=== PATIENT | female | born 1955 | race Caucasian/White ===

== ENCOUNTER 2020-04-18 22:01 | Observation (INO) ==
[2020-04-18] MEDS ORDERED: ASPIRIN CHEW 324 MG PO STA (22:20)
[2020-04-18] MEDS ORDERED: FAMOTIDINE 20MG/5ML IV PUSH IV STA (22:20)
[2020-04-18] MEDS ORDERED: NITROGLYCERIN 2% OINTMENT 30GM TUBE EXT STA (22:20)
--- NOTE | 2020-04-18 22:26 | Emergency Department Note ---
Impression & Plan Precordial chest pain, SOB (shortness of breath), Acute electrocardiogram changes ED Provider Note NAME: HOLGER WINSLOW AGE: 65 SEX: F : 1955 ARRIVES VIA: Walk-In INFORMANT: [Patient] ED PROVIDER(S): [Grant Monreal MD] CHIEF COMPLAINT: Chest pain HISTORY OF PRESENT ILLNESS: The patient is a 65-year-old female who presents to the ER with a week of symptoms. The patient has had some nausea, some loose stool at times. She has had some indigestion/chest pressure that she rates as a 9/10. The pain today for the first time radiated to her back. She has had some shortness of breath with the chest discomfort and with exertion. She does think exertion sometimes makes the chest pain worse. The patient states that she has tried Mylanta and Pepto-Bismol to no relief. She has had heartburn before but nothing to this extent. There has been no sweating. She has not suffered chest trauma. There has been no fever. No cough or congestion. She has no known coronary disease history but her sister had angioplasty. The patient did have a stress test but this was many years ago. REVIEW OF SYSTEMS: See HPI for pertinent positives and negatives. A total of ten systems were reviewed and were otherwise negative. PMHx/PSHx: See Below SOCIAL HISTORY: See Below. PHYSICAL EXAM: GENERAL: Patient is in no acute distress. HEENT: No acute trauma, normocephalic atraumatic, mucous membranes moist, no nasal congestion, no scleral icterus. NECK: No stridor, no adenopathy, no meningismus, trachea is midline. LUNGS: Clear to auscultation bilaterally, no wheeze, no rhonchi, breath sounds equal. HEART: 2/6 systolic murmur, regular rate and rhythm. Chest: Mildly tender anterior mid chest wall. ABDOMEN: Soft, nontender, bowel sounds positive, no hernias, no peritonitis. EXTREMITIES: No cyanosis or edema, full range of motion of all the joints without pain or difficulty, no signs for acute trauma. NEUROLOGIC: Oriented x 3, no acute motor or sensory deficits, no focal weakness. SKIN: No rash, no jaundice, no diaphoresis. DIFFERENTIAL DIAGNOSIS: Cardiac ischemia, aortic dissection, pulmonary embolism, pneumothorax, pneumonia, pericarditis, myocarditis, esophageal rupture, GERD, cholecystitis, pancreatitis, musculoskeletal, as well as other pathologies. EMERGENCY DEPARTMENT COURSE/PROCEDURES: ECG: Indication was chest pain. The ECG shows a normal sinus rhythm with a ra te of 90. There is some T wave inversions/ST depression in a few of the anterior/lateral leads. There is no ST elevation, no PVCs. The QTc is 511. Compared to an ECG from 21 March 2018, the T wave changes are new. Continuous Cardiac Monitoring: An order was placed for continuous cardiac monitoring. The monitor shows a rate of 79 with normal sinus rhythm. MEDICAL DECISION MAKING: There is no leukocytosis or concerning anemia. There is a normal platelet count. No coagulopathy. No significant electrolyte abnormality or kidney failure. No worrisome liver enzyme elevation. No evidence for pancreatitis. ECG shows a sinus rhythm with some T wave inversion and ST depression in some of the anterior/lateral leads. These EKG changes are new compared to an old EKG. No evidence for acute GA. Cardiac enzyme testing x1 is not consistent with acut e cardiac injury. Chest film does not show mediastinal widening, pneumonia or pneumothorax. The patient presents with a week of chest pain. Chest pain has at times been exertional. She has had some exertional shortness of breath. Today, the pain radiated to her back. She does have cardiac risk factors. I do think a hospital stay is warranted. Patient was given oral aspirin, IV Pepcid and nitroglycerin paste. She is currently resting comfortably. I discussed my findings with the patient. I did speak with case management. The on-call hospitalist was consulted. Past Med/Surg History Medical History Anxiety Cardiac murmur does not follow w/ cardio - last echo 5-6 years ago, On license of [facility] GERD (gastroesophageal reflux disease) OTC antacids PRN Hypertension Osteoarthritis Subconjunctival hemorrhage of left eye Vertigo (Resolved) Viral pharyngitis Surgical History History of cataract surgery History of cholecystectomy History of colonoscopy History of detached retina repair History of esophagogastroduodenoscopy (EGD) History of total abdominal hysterectomy and bilateral salpingo-oophorectomy Nausea and vomiting after administration of anesthetic agent S/P cholecystectomy S/P hysterectomy (Resolved) S/P hysterectomy Social History Smoking Status: Never smoker Second Hand Exposure: Yes (as a child); Hx Alcohol Use: No Hx Substance Use: No Preferred Language: Syriac Communication Ability: Effective Visual Impairment: No Limitations Hearing Ability: Normal Rn Womens Health Required: No Beliefs That Will Affect Care: None marital status: Current Living Situation: Spouse current occupational status: retired Feels Safe at Home: Yes Dental Care, Regularly: No Physical Activity Frequency: 1-2 Times per Week Seatbelt Use: always Allergies Allergies Allergy/AdvReac Type Severity Reaction Status Date / Time Sulfa (Sulfonamide Allergy Unknown itching Unverified 04/18/20 23:53 Antibiotics) Penicillins AdvReac Rash Verified 04/18/20 23:53 Home Meds Home Medications Medication Instructions Recorded Confirmed cholecalciferol (vitamin D3) 125 5,000 unit PO QAM tab 05/31/19 04/18/20 mcg (5,000 unit) tablet alum-mag hydroxide-simeth [Mylanta 5 ml PO QID PRN 11/06/19 04/18/20 Maximum Strength] Previous Rx's Medication Instructions Recorded hydrochlorothiazide 25 mg tablet 25 mg PO DAILY #90 tab 12/22/19 Results & Data (ED) Vital Signs Vital Signs - 24 hr 04/18/20 22:01 04/18/20 22:03 04/18/20 22:21 Temperature 36.8 C Temperature Source Oral Pulse Rate 103 H 79 Pulse Rhythm Regular Respiratory Rate 16 18 Respiratory Effort / Characteristics Non-Labored Non-Labored Respiratory Depth Normal Normal Blood Pressure 172/87 H Blood Pressure [Right Arm] 141/96 H Blood Pressure Mean 115 Blood Pressure Mean [Right Arm] 111 Pulse Oximetry 95 96 95 Oxygen Delivery Method Room Air Room Air Room Air Sepsis Recent Fever Within 48 Hours No Sepsis New/Unexplained Change in Mental Status No Sepsis Action Taken by Nursing No Action Required Home Medications Current Medication List: was personally reviewed by me Laboratory Data Attestation: I reviewed the patient's lab results. Result diagrams: 04/18/20 22:45 04/18/20 22:45 Lab Results 04/18/20 04/18/20 04/18/20 Range/Units 22:45 22:45 22:45 WBC 9.49 (4.8-10.8) K/uL RBC 4.84 (4.2-5.4) M/uL Hgb 14.7 (12.0-16.0) g/dL Hct 42.1 (37-47) % MCV 87.0 (80-100) fL MCH 30.4 (25-34) pg MCHC 34.9 (32-36) g/dL RDW Std Deviation 43.1 (36.4-46.3) fL RDW Coeff of Megha 13.5 (11.5-14.5) % Plt Count 308 (130-400) K/uL MPV 9.6 (7.4-10.4) fL Immature Gran % (Auto) 0.2 % Neut % (Auto) 63.8 % Lymph % (Auto) 23.8 % [place] % (Auto) 11.5 % Eos % (Auto) 0.6 % Baso % (Auto) 0.1 % Neut # (Auto) 6.05 (1.4-6.5) K/uL Lymph # (Auto) 2.26 (1.2-3.4) K/uL [place] # (Auto) 1.09 H (0.11-0.59) K/uL Eos # (Auto) 0.06 (0-0.5) K/uL Baso # (Auto) 0.01 (0-0.2) K/uL Immature Gran # (Auto) 0.02 (0.00-0.02) K/uL PT 10.7 (9.0-12.0) Seconds INR 1.0 (0.9-1.1) APTT 26.8 (21.0-31.0) Seconds PTT Ratio 1.0 Sodium 136 (136-145) mmol/L Potassium 3.6 (3.5-5.1) mmol/L Chloride 102 (98-107) mmol/L Carbon Dioxide 30 (21-32) mmol/L Anion Gap 4.0 (3-11) BUN 22 H (7-18) mg/dl Creatinine 1.02 (0.6-1.2) mg/dl Est Cr Clr Drug Dosing 57.6 ml/min Est GFR ( Amer) 65.9 Est GFR (Non-Af Amer) 56.9 BUN/Creatinine Ratio 21.1 H (10-20) Glucose 111 H (70-99) mg/dl Calcium 9.1 (8.5-10.1) mg/dl Magnesium 2.5 H (1.8-2.4) mg/dl Total Bilirubin 0.5 (0.2-1) mg/dl AST 14 L (15-37) U/L ALT 20 (12-78) U/L Alkaline Phosphatase 104 (45-117) U/L Troponin I < 0.015 (0-0.045) ng/ml Total Protein 8.2 (6.4-8.2) gm/dl Albumin 3.8 (3.4-5.0) gm/dl Globulin 4.4 H (2.5-4.0) gm/dl Albumin/Globulin Ratio 0.9 (0.9-2) Lipase 131 (73-393) U/L Administered Medications Discontinued Medications Aspirin (Aspirin) 324 mg PO NOW STA Stop: 04/18/20 22:21 Last Admin: 04/18/20 23:40 Dose: 324 mg Documented by: [id number] Famotidine (Pepcid 20mg Iv Push) 20 mg IV ONE STA Stop: 04/18/20 22:21 Last Admin: 04/18/20 23:40 Dose: 20 mg Documented by: [id number] Nitroglycerin (Nitro-Bid 2%) 0.5 inch EXT NOW STA Stop: 04/18/20 22:21 Last Admin: 04/18/20 23:40 Dose: 0.5 inch Documented by: [id number] Imaging Data My Impression: Chest x-ray: There is no mediastinal widening, pneumonia or pneumothorax. The lungs appear clear. Blood Pressure Blood Pressure Findings: Elevated blood pressure Blood Pressure Disposition: further management by hospitalist Discharge Plan Visit Data Chief Complaint: Illness Stated Complaint: HASNT FELT GOOD, CHEST PAIN ED Provider: Grant Monreal Discharge Problem: Precordial chest pain, SOB (shortness of breath), Acute electrocardiogram changes Patient Disposition: Admitted As Inpatient Condition: Good Forms Stand Alone Forms: [facility] Prescriptions Prescriptions: No Action hydrochlorothiazide 25 mg tablet 25 mg PO DAILY Qty: 90 RF: 3 cholecalciferol (vitamin D3) 5,000 unit tablet 5,000 unit PO QAM RF: 0 alum-mag hydroxide-simeth [Mylanta Maximum Strength] 400-400-40 mg/5 mL Suspension 5 ml PO QID PRN (Reason: reflux) RF: 0 Referrals Referrals: Bisi Gay MD [Primary Care Provider] -
[2020-04-18 23:14] LABS: Basophils # (auto) 0.01 K/uL (0-0.2); Basophils % (auto) 0.1 %; Eosinophils # (auto) 0.06 K/uL (0-0.5); Eosinophils % (auto) 0.6 %; Hematocrit (blood only) 42.1 % (37-47); Hemoglobin 14.7 g/dL (12.0-16.0); Immature Granulocytes # (auto) 0.02 K/uL (0.00-0.02); Immature Granulocytes % (auto) 0.2 %; Lymphocytes # (auto) 2.26 K/uL (1.2-3.4); Lymphocytes % (auto) 23.8 %; Mean Corpuscular Hemoglobin 30.4 pg (25-34); Mean Corpuscular Hgb Conc 34.9 g/dL (32-36); Mean Platelet Volume 9.6 fL (7.4-10.4); Monocytes # (auto) 1.09 K/uL (0.11-0.59); Monocytes % (auto) 11.5 %; Neutrophils # (auto) 6.05 K/uL (1.4-6.5); Neutrophils % (auto) 63.8 %; Platelet Count 308 K/uL (130-400); RDW Coefficient of Variation 13.5 % (11.5-14.5); RDW Standard Deviation 43.1 fL (36.4-46.3); Red Blood Count 4.84 M/uL (4.2-5.4); White Blood Count 9.49 K/uL (4.8-10.8)
[2020-04-18 23:17] LABS: Alanine Aminotransferase 20 U/L (12-78); Albumin Level 3.8 gm/dl (3.4-5.0); Aspartate Aminotransferase 14 U/L (15-37); BUN Creatinine Ratio 21.1 (10-20); Blood Urea Nitrogen 22 mg/dl (7-18); Calcium 9.1 mg/dl (8.5-10.1); Carbon Dioxide 30 mmol/L (21-32); Chloride 102 mmol/L (98-107); Creatinine Clr Calc Pharmacy 57.6 ml/min; Est GFR (African American) 65.9; Est GFR (Non-African American) 56.9; Glucose 111 mg/dl (70-99); Lipase 131 U/L (73-393); Magnesium 2.5 mg/dl (1.8-2.4); Partial Thromboplastin Time 26.8 Seconds (21.0-31.0); Potassium 3.6 mmol/L (3.5-5.1); Prothrombin Time 10.7 Seconds (9.0-12.0); Sodium 136 mmol/L (136-145)
[2020-04-18 23:23] LABS: Albumin Globulin Ratio 0.9 (0.9-2); Alkaline Phosphatase 104 U/L (45-117); Bilirubin,Total 0.5 mg/dl (0.2-1); Globulin 4.4 gm/dl (2.5-4.0); Total Protein 8.2 gm/dl (6.4-8.2); Troponin I < 0.015 ng/ml (0-0.045)
--- NOTE | 2020-04-19 00:08 | History & Physical Report ---
Date of Service April 18, 2020 Assessment & Plan (1) Precordial chest pain: 65-year-old female with past medical history anxiety, GERD, hypertension presents with concerns of substernal chest pain admitted for chest pain rule out. Chest pain/abnormal EKG changes Admit to med telemetry EKG on arrival shows Normal sinus rhythm. Some T wave inversions/ST depression in a few anterior lateral leads. Compared to prior ECG from March 21, 2018, new T wave changes noted. Repeat daily EKG Troponin on admission negative, will trend every 6 hours x2 Findings do not seem as concerning for ACS. Likely contributed by GERD symptoms Morphine nitroglycerin ordered as needed for any chest pain Deferring cardiology consult at present Echo ordered A1c, fasting lipid panel in a.m. Patient was aspirin initiated. Can assess for need for statin calculating ASCVD score tomorrow -Heart Score 5 pts--moderate score. Risk of MACE 12-16.6% Hypertension Continue hydrochlorothiazide 25 mg daily FEN/GI: Heart healthy diet DVT prophylaxis: Lovenox SQ Full code Dispo: Med telemetry History of Present Illness Chief Complaint: Chest pain Primary Care Provider: Bisi Hopper MD 65-year-old female with past medical history anxiety, GERD, hypertension presents with concerns of substernal chest pain. Onset last Wednesday worse on Wednesday. Described as a chest pressure/indigestion sensation. As noted above patient with a history of reflux, however she notes that it has never been this bad. This lasted for a couple of minutes. Today this radiated to the back, which was new for patient so she presented the ED. At its worst 9 out of 10 on pain scale. Currently 2 out of 10. Exacerbated by exertion and eating. Patient has tried Mylanta, Pepto-Bismol, josh and other natural remedies with little alleviation. Patient with associated shortness of breath with exertion, nausea, dizziness. Patient otherwise denies any fevers, chills, vomiting, diaphoresis, palpitations, edema, cough, headache, abdominal pain, urinary symptoms, no sick contacts or recent travel anywhere. Patient with no other acute concerns or complaints. Pertinent labs: Largely unremarkable. Initial troponin negative Chest x-ray: No acute process EKG: Normal sinus rhythm. Some T wave inversions/ST depression in a few anterior lateral leads. Compared to prior ECG from March 21, 2018, new T wave changes noted. ER course: P.o. aspirin 324 mg, nitroglycerin, IV famotidine 20 Family history: Sister with stent placed at age 47 Social history: Patient denies any tobacco use, social alcohol use. No illicit drug use Allergies Allergy/AdvReac Type Severity Reaction Status Date / Time Sulfa (Sulfonamide Allergy Unknown itching Unverified 04/18/20 23:53 Antibiotics) Penicillins AdvReac Rash Verified 04/18/20 23:53 Home Medications Home Medications Medication Instructions Recorded Confirmed Type cholecalciferol (vitamin D3) 125 5,000 unit PO QAM tab 05/31/19 04/18/20 History mcg (5,000 unit) tablet alum-mag hydroxide-simeth [Mylanta 5 ml PO QID PRN 11/06/19 04/18/20 History Maximum Strength] hydrochlorothiazide 25 mg tablet 25 mg PO DAILY #90 tab 12/22/19 04/18/20 Rx Past Med/Surg History Medical History Anxiety Cardiac murmur does not follow w/ cardio - last echo 5-6 years ago, [facility] GERD (gastroesophageal reflux disease) OTC antacids PRN Hypertension Osteoarthritis Subconjunctival hemorrhage of left eye Vertigo (Resolved) Viral pharyngitis Surgical History History of cataract surgery History of cholecystectomy History of colonoscopy History of detached retina repair History of esophagogastroduodenoscopy (EGD) History of total abdominal hysterectomy and bilateral salpingo-oophorectomy Nausea and vomiting after administration of anesthetic agent S/P cholecystectomy S/P hysterectomy (Resolved) S/P hysterectomy Social History Smoking Status: Unknown if ever smoked Second Hand Exposure: Yes (as a child); Hx Alcohol Use: No Hx Substance Use: No Preferred Language: Lao Communication Ability: Effective Visual Impairment: No Limitations Hearing Ability: Normal Pairer Substandard Required: No Beliefs That Will Affect Care: None marital status: Current Living Situation: Spouse current occupational status: retired Feels Safe at Home: Yes Dental Care, Regularly: No Physical Activity Frequency: 1-2 Times per Week Seatbelt Use: always Review of Systems Review of Systems: All systems reviewed & are unremarkable except as noted in HPI & below Physical Exam Constitutional: WD/WN, vitals as above Eyes: PERRL, conjunctivae normal, anicteric sclerae ENMT: external ear and nose normal, oropharynx normal Respiratory: normal respiratory effort, lungs clear to auscultation Cardiovascular: Rate/Rhythm: regular rate and regular rhythm Heart Sounds: + murmur Gastrointestinal (Abdomen): normal bowel sounds, soft, nontender, no hepatosplenomegaly Skin: no rashes, warm and dry Psychiatric: A+Ox3, euthymic affect Results & Data Results & Data ([facility]) Vital Signs (Past 12 Hours) Vital Signs Temp Pulse Resp BP BP Pulse Ox 04/18/20 22:21 79 95 04/18/20 22:03 36.8 C 103 H 18 172/87 H 96 04/18/20 22:01 16 141/96 H 95 Laboratory Results Laboratory Results - last 24 hr 04/18/20 04/18/20 04/18/20 22:45 22:45 22:45 WBC 9.49 RBC 4.84 Hgb 14.7 Hct 42.1 MCV 87.0 MCH 30.4 MCHC 34.9 RDW Std Deviation 43.1 RDW Coeff of Megha 13.5 Plt Count 308 MPV 9.6 Immature Gran % (Auto) 0.2 Neut % (Auto) 63.8 Lymph % (Auto) 23.8 [place] % (Auto) 11.5 Eos % (Auto) 0.6 Baso % (Auto) 0.1 Neut # (Auto) 6.05 Lymph # (Auto) 2.26 [place] # (Auto) 1.09 H Eos # (Auto) 0.06 Baso # (Auto) 0.01 Immature Gran # (Auto) 0.02 PT 10.7 INR 1.0 APTT 26.8 PTT Ratio 1.0 Sodium 136 Potassium 3.6 Chloride 102 Carbon Dioxide 30 Anion Gap 4.0 BUN 22 H Creatinine 1.02 Est Cr Clr Drug Dosing 57.6 Est GFR ( Amer) 65.9 Est GFR (Non-Af Amer) 56.9 BUN/Creatinine Ratio 21.1 H Glucose 111 H Calcium 9.1 Magnesium 2.5 H Total Bilirubin 0.5 AST 14 L ALT 20 Alkaline Phosphatase 104 Troponin I < 0.015 Total Protein 8.2 Albumin 3.8 Globulin 4.4 H Albumin/Globulin Ratio 0.9 Lipase 131 Code Status & VTE Plan Code Status full Supervising Physician Co-Signing Physician Notes Patient seen and examined, chart reviewed, case discussed with Dr. Ortega and I agree with his assessment and plan as documented above. Briefly, patient is a 65yo C female presenting with appx 6-7 days of substernal chest discomfort. EKG with TWI and mild ST depressions present in anterior leads. Troponin x 1 negative On exam she is afebrile, HD stable, NAD Skin - no rash HEENT - NC/AT, PERRL, neck supple, MMM Heart - +S1/S2, regular, no m/r/g, no CW tenderness Lungs - CTA Abd - +BS, soft, NT/ND Ext - No edema, 2+ pulses Labs and images reviewed Assessment/Plan - 65yo C female with history of HTN, premature CAD in sister presenting with 1 week of substernal chest discomfort, EKG changes from prior. Troponin x 1 negative. Patient reports some VILLASENOR and decreased exercise tolerance ongoing for months. Does not experience exertional chest discomfort prior to this event. Moderate risk by HEART score for age, risk factors and EKG findings -Observation with telemetry -Trend troponins -Check A1C/Lipids -ASA -REmainder of plan as above Resident Activity Tracking Resident Involvement: Resident Care Provided Care Provided: Adult Hospital Medicine
[2020-04-19] MEDS ORDERED: MoRPHine SULFATE 2 MG/ML CARP IV PRN (01:57)
[2020-04-19] MEDS ORDERED: ONDANSETRON INJ 2 MG/ML 2 ML VIAL IV PRN (01:57)
[2020-04-19] MEDS ORDERED: ALUMINUM/MAGNESIUM/SIMETH (MAALOX MAX) 30 ML UDC PO PRN (01:57)
[2020-04-19] MEDS ORDERED: ALUMINUM/MAGNESIUM SUSP 30 ML UDC PO PRN (01:57)
[2020-04-19] MEDS ORDERED: NITROGLYCERIN SL 0.4 MG/TAB TAB SL PRN (01:57)
[2020-04-19] MEDS ORDERED: ACETAMINOPHEN 325 MG TAB PO PRN (01:57)
--- NOTE | 2020-04-19 02:42 | Billing Data ---
Date of Service April 19, 2020 Coding Level of Care Code 16338 OBS Care - Level 3
--- NOTE | 2020-04-19 06:28 | XRay Report ---
XR chest 1V portable HISTORY: 65 years-old Female Chest Pain acute atypical chest pain COMPARISON: None TECHNIQUE: Portable AP view of the chest FINDINGS: Cardiomediastinal and hilar silhouettes are within normal limits. There is no pneumothorax, pleural e ffusion, airspace consolidation or overt pulmonary edema. Minimal left lung base opacities suggest, e picardial fat pad versus atelectasis. Bones appear grossly intact. IMPRESSION: No acute process. ACT 112: Negative or not required by law. The above report was generated using voice recognition software. It may contain grammatical, syntax o r spelling errors. Electronically signed by: Ac Hussein M.D. 04/19/2020 6:27 AM
[2020-04-19 08:00] LABS: Basophils # (auto) 0.02 K/uL (0-0.2); Basophils % (auto) 0.3 %; Eosinophils # (auto) 0.04 K/uL (0-0.5); Eosinophils % (auto) 0.5 %; Hematocrit (blood only) 43.2 % (37-47); Hemoglobin 14.6 g/dL (12.0-16.0); Immature Granulocytes # (auto) 0.01 K/uL (0.00-0.02); Immature Granulocytes % (auto) 0.1 %; Lymphocytes # (auto) 1.58 K/uL (1.2-3.4); Lymphocytes % (auto) 20.8 %; Mean Corpuscular Hemoglobin 29.7 pg (25-34); Mean Corpuscular Hgb Conc 33.8 g/dL (32-36); Mean Platelet Volume 9.7 fL (7.4-10.4); Monocytes # (auto) 0.76 K/uL (0.11-0.59); Neutrophils % (auto) 68.3 %; Platelet Count 311 K/uL (130-400); RDW Coefficient of Variation 13.6 % (11.5-14.5); RDW Standard Deviation 43.9 fL (36.4-46.3); Red Blood Count 4.91 M/uL (4.2-5.4); White Blood Count 7.61 K/uL (4.8-10.8)
[2020-04-19 08:08] LABS: Estimated Average Glucose 111 mg/dl; Hemoglobin A1C 5.5 % (4.5-5.6)
[2020-04-19 08:24] LABS: BUN Creatinine Ratio 19.4 (10-20); Blood Urea Nitrogen 20 mg/dl (7-18); Carbon Dioxide 27 mmol/L (21-32); Chloride 102 mmol/L (98-107); Cholesterol 194 mg/dl (0-200); Creatinine Clr Calc Pharmacy 57.6 ml/min; Est GFR (African American) 65.9; Est GFR (Non-African American) 56.9; Glucose 107 mg/dl (70-99); Potassium 3.1 mmol/L (3.5-5.1); Sodium 136 mmol/L (136-145); Triglycerides 63 mg/dl (0-150); VLDL Cholesterol 13 mg/dl
[2020-04-19 08:29] LABS: Chol HDL Ratio 3; HDL Cholesterol 68 mg/dl; LDL Cholesterol Calculated 113 mg/dl; Troponin I < 0.015 ng/ml (0-0.045)
[2020-04-19] MEDS ORDERED: CHOLECALCIFEROL 1,000 UNITS 25 MCG TAB PO SCH (09:00)
[2020-04-19] MEDS ORDERED: ASPIRIN 81 MG ECTAB PO SCH (09:00)
[2020-04-19] MEDS ORDERED: ENOXAPARIN INJ 40 MG/0.4 ML SYR SQ SCH (09:00)
[2020-04-19] MEDS ORDERED: hydroCHLOROthiazide 25 MG TAB PO SCH (09:00)
--- NOTE | 2020-04-19 10:47 | Medical Student Progress Note ---
Date of Service April 19, 2020 Assessment & Plan (1) Precordial chest pain: Patient is 65-year-old female with past medical history anxiety, GERD, hypertension presents with concerns of substernal chest pain admitted for chest pain rule out. Chest pain/abnormal EKG changes - EKG on arrival shows normal sinus rhythm. Some T wave inversions/ST depression in a few anterior lateral leads. Compared to prior ECG from March 21, 2018, new T wave changes noted. Repeat daily EKG - Troponin negative x 2, will trend every 6 hours x1 - K: 3.1. Administer KCl 40 mEq. - A1c: 5.5 - Fasting Lipids: TC - 194; HDL - 68; LDL- 113; TG - 63 - Etiology: GERD vs Cardiac. Not acutely concerned about ACS cause - Stress Test and Echo ordered to r/o cardiac etiology - Continue ASA81 initiated in ED - ASCVD 10 yr risk: 13.4%. Will discuss with patient about starting statin - Heart Score 5 pts--moderate score. Risk of MACE 12-16.6% - Morphine nitroglycerin ordered as needed for any chest pain Hypertension - Continue hydrochlorothiazide 25 mg daily FEN/GI: Heart healthy diet DVT prophylaxis: Lovenox SQ Full code Dispo: Med telemetry Subjective Patient is a 65 y/o female with a past medical history of GERD, Anxiety, and hypertension who reported to the ED on 04/18 for chest pain. Onset of pain is about 1 week ago, in which a substernal chest pressure/indigestion sensation came about and lasted for a couple of minutes. Pain on 04/18 was of a similar nature but radiated to her back, which is why she came to the ED. Severity is 9/10 and nothing seems to alleviate the pain. For the past two days, she has also been taking Pepto-bismol which has not provided much relief. Pain is exacerbated by activity and eating. Patient says she limits her fried foods, caffeine, and alcohol (only occasional wine which she has not had within the past week). She consumed decaf tea. Patient endorses nausea, dizziness, and shortness of breath with exertion that has been ongoing for the past couple of months (which she attributes to weight gain). Patient denies fever, chills, vomiting, diaphoresis, palpitation, edema, cough, headache, abdominal pain, or urinary symptoms. Overnight, patient overall feels well. She feels discomfort in the center of her chest which is exacerbated by certain body movements. Patient has not had a bowel movement since admission. She endorses SOB with exertion and denies chest pain, SOB, palpitations, cough. Review of Systems Constitutional: no fever and no chills Respiratory: + dyspnea on exertion; no cough, no dyspnea and no pain on inspiration Cardiovascular: no chest pain, no palpitations and no edema Physical Exam Constitutional: well developed, well nourished, + obese, cooperative and comfortable; no acute distress Eyes: + anicteric sclerae Respiratory: normal respiratory effort; no respiratory distress and does not use accessory muscles Cardiovascular: Rate/Rhythm: regular rate and regular rhythm Skin: no rashes, warm and dry Psychiatric: A+Ox3, euthymic affect Results & Data ([facility]) Vital Signs (Past 12 Hours) Vital Signs Temp Pulse Pulse Resp BP BP BP 04/19/20 09:00 67 04/19/20 07:16 36.6 C 87 18 163/78 H 04/19/20 02:01 36.7 C 18 149/85 H 04/19/20 01:59 36.7 C 18 149/85 H 04/19/20 01:31 77 16 124/73 04/19/20 00:01 16 131/76 Pulse Ox 04/19/20 09:00 04/19/20 07:16 96 04/19/20 02:01 96 04/19/20 01:59 96 04/19/20 01:31 94 04/19/20 00:01 95
[2020-04-19] MEDS ORDERED: POTASSIUM CHLORIDE 20 MEQ TABCR PO STA (11:36)
--- NOTE | 2020-04-19 16:53 | XCELERA ---
[id number] \\[id number]_[id number]___[id number]
--- NOTE | 2020-04-19 17:21 | XCELERA ---
[id number] \\[id number]_Reports\[id number]}___[id number]
--- NOTE | 2020-04-19 17:30 | Discharge Summary ---
Date of Service April 19, 2020 Admission HPI Per Admitting Provider 65-year-old female with past medical history anxiety, GERD, hypertension presents with concerns of substernal chest pain. Onset last Wednesday worse on Wednesday. Described as a chest pressure/indigestion sensation. As noted above patient with a history of reflux, however she notes that it has never been this bad. This lasted for a couple of minutes. Today this radiated to the back, which was new for patient so she presented the ED. At its worst 9 out of 10 on pain scale. Currently 2 out of 10. Exacerbated by exertion and eating. Patient has tried Mylanta, Pepto-Bismol, josh and other natural remedies with little alleviation. Patient with associated shortness of breath with exertion, nausea, dizziness. Patient otherwise denies any fevers, chills, vomiting, diaphoresis, palpitations, edema, cough, headache, abdominal pain, urinary symptoms, no sick contacts or recent travel anywhere. Patient with no other acute concerns or complaints. Pertinent labs: Largely unremarkable. Initial troponin negative Chest x-ray: No acute process EKG: Normal sinus rhythm. Some T wave inversions/ST depression in a few anterior lateral leads. Compared to prior ECG from March 21, 2018, new T wave changes noted. ER course: P.o. aspirin 324 mg, nitroglycerin, IV famotidine 20 Family history: Sister with stent placed at age 47 Social history: Patient denies any tobacco use, social alcohol use. No illicit drug use Principal Diagnosis Chest pain secondary to GERD Discharge Exam Constitutional WD/WN, vitals as above Respiratory normal respiratory effort, lungs clear to auscultation Cardiovascular RRR, no murmur, no edema Gastrointestinal (Abdomen) normal bowel sounds, soft, nontender, no hepatosplenomegaly Skin no rashes, warm and dry Psychiatric A+Ox3, euthymic affect Discharge Data Allergies Allergy/AdvReac Type Severity Reaction Status Date / Time Sulfa (Sulfonamide Allergy Unknown itching Unverified 04/18/20 23:53 Antibiotics) Penicillins AdvReac Rash Verified 04/18/20 23:53 Consultations 04/18/20 23:26 ED Decision to Admit Stat Hospital Course (1) Precordial chest pain: 65-year-old female with past medical history anxiety, GERD, hypertension presents with concerns of substernal chest pain admitted for chest pain rule out. Chest pain/abnormal EKG changes EKG on arrival shows Normal sinus rhythm. Some T wave inversions/ST depression in a few anterior lateral leads. Compared to prior ECG from March 21, 2018, new T wave changes noted. Repeat daily EKG -Kept on Tele. Troponin on admission negative x 2 - added statin due to high ASCVD risk. - stress echo done - negative. Findings likely contributed by GERD symptoms GERD - discussed taking otc prilosec and getting H pylori test as outpatient. unable to do while in hospital since no sample collected. Hypertension Continued hydrochlorothiazide 25 mg daily Total Time Total Time Spent Total Time Spent (In Minutes): 32 min Discharge Plan Discharge Items Patient Disposition: Home - Self-Care Reason For Visit: CP, SOB Discharge Diagnosis: Chest pain likely from acid reflux Condition on Discharge: Good Activity: Resume your previous activity Non-emergency contact: Primary Care Provider Call non-emergency contact if: your symptoms worsen Follow-up/Referrals: Bisi Gay MD [Primary Care Provider] - Diet: Low Sodium (2gm) Addtl Attending Provider Instructions: Your stress test came back normal. Since your cholesterol numbers add upto showing a higher risk of developing heart disease and stroke, it is recommended for you to be on a cholesterol medicine. A prescription of atorvastatin is sent. Side effects were reviewed with you. Please follow up with your family physician in one week. You can discuss with them about getting tested for H pylori due to your worsening acid reflux symptoms. This test could not be done at the hospital. Pending Studies at Discharge: No Stand-Alone Forms: [facility] [employer], Smoking Cessation Medications and DC Order Prescriptions: New atorvastatin [Lipitor] 40 mg tablet 40 mg PO HS Qty: 30 RF: 0 omeprazole magnesium [Prilosec OTC] 20 mg tablet,delayed release (DR/EC) 20 mg PO DAILY Qty: 30 RF: 0 Continued hydrochlorothiazide 25 mg tablet 25 mg PO DAILY Qty: 90 RF: 3 cholecalciferol (vitamin D3) 5,000 unit tablet 5,000 unit PO QAM RF: 0 alum-mag hydroxide-simeth [Mylanta Maximum Strength] 400-400-40 mg/5 mL Suspension 5 ml PO QID PRN (Reason: reflux) RF: 0 Discharge Orders: Discharge Order (Routine); Ordered 04/19/20 Ordered By: Faviola Hsieh Admission Data Admit Date/Time: 04/19/20 00:26 Attending Provider: Faviola Hsieh Admit Provider: Nick Ortega Primary Care Provider: Bisi Gay V. Other Providers: Lynne Jasso
--- NOTE | 2020-04-20 06:53 | Electrocardiogram Report ---
Test Reason : Blood Pressure : / mmHG Vent. Rate : 090 BPM Atrial Rate : 090 BPM P-R Int : 158 ms QRS Dur : 084 ms QT Int : 360 ms P-R-T Axes : 054 041 009 degrees QTc Int : 441 ms Normal sinus rhythm Nonspecific ST and T wave abnormality Abnormal ECG When compared with ECG of 21-MAR-2018 07:52, Vent. rate has increased BY [address] more depressed Anterior leads Nonspecific T wave abnormality, worse in Inferior leads T wave inversion now evident in Anterior leads Confirmed by Pb Helm ([id number]) on 04/20/2020 6:53:27 AM Referred By: REFERRED SELF Confirmed By:Pb Helm
== END 2020-04-19 18:04 | disposition home or self-care (01) ==
LOC: ED 22:01 → 2W 22:01 → SUATTDRO 04-19 00:26 → 2W 04-19 01:31

== ENCOUNTER 2024-11-27 07:51 | Observation (INO) ==
--- NOTE | 2024-11-27 08:36 | Emergency Department Note ---
Impression & Plan Exertional dyspnea, Persistent cough, Chest pain, exertional ED Provider Note Name: HOLGER WINSLOW Age: 69 Sex: Female Arrives Via: Walk-In Informant: Patient, ED Provider: Seferino Warren MD Chief Complaint: Shortness of breath Impression: As per impressions above Medical Decision Making: Pleasant 69-year-old female with a history of GERD, hypertension, prediabetes arrives for evaluation of worsening shortness of breath over the last 2 to 3 months specifically with exertion. Associate with palpitations and over the last several days some nonspecific chest discomfort. I evaluated the patient last week in the ER with negative workup at that time. Given the persistent cough we have attempted a round of doxycycline without any improvement. Patient notes that symptoms have progressively worsened and thus is back in the ER. On examination while in bed she appears quite well without any acute concerning findings. However given the progressive worsening of symptoms and now this development of chest discomfort with exertion hospitalization is likely indicated. I discussed this with hospital service for further management. I have not found any clear evidence of ACS, PE, dissection or sepsis at this time. Triage/Nursing Notes reviewed by Me External Chart Review by me: I reviewed the patient's PCP note from 11/23/2024 and plans for workup of symptoms and management at that time Differential:Reactive airway disease, pneumonia, pneumothorax, COPD, CHF, infections, cardiac ischemia, pulmonary embolism, musculoskeletal, gastrointestinal, as well as other pathologies. Vital Signs: reviewed and remarkable for no significant abnormalities Labs:ED labs Reviewed by me and remarkable for no significant abnormalities Imagin view chest x-ray as per my interpretation no infiltrate nor effusion appreciated. EKG:As per my interpretation. Indication shortness of breath. Sinus at 89 bpm with PAC noted. QTc 435. There is no ischemia appreciated. Compared to EKG November 18, 2024 no significant change. Cardiac/Tele Monitoring: Cardiac Monitoring: An Order was placed for continuous cardiac monitoring. The monitor shows a rate of 80 with a normal sinus rhythm. Consults:Discussed with hospital service who will further evaluate and manage. Plan: Disposition:Hospitalization. Condition: Good History of Present Illness: 69-year-old female arrives for evaluation of shortness of breath. Patient notes for the last 2 to 3 months worsening shortness of breath with exertion. Associated with episodes of palpitations. She was seen about a week ago here in the ER with negative chest x-rays, CTA, cardiac workup at that time. Patient notes continued worsening of symptoms despite having been started on doxycycline. She states dry nonproductive cough which has continued worsening as well. Denies any current chest pain but at times with the shortness of breath she does get some left-sided chest pressure that goes into her left shoulder blade and back. Denies any syncope, nausea, vomiting, abdominal pain, back pain, urinary/bowel symptoms, leg swelling, calf pain, other concerning signs or symptoms. Patient notes that due to the severe worsening of symptoms she arrives to the ER for recheck. A stress test has been ordered and is planned for Wednesday morning this week. She also has a Holter monitor ordered as well. Patient notes that since discharge she realized that her sister did have angioplasty several years ago for cardiac disease. Past Medical History:See Below Home Medications:See Below Allergies:See Below Vitals:Blood Pressure: 148/80, Pulse 89, RR 19, T 36.6C, O2 94% on RA Physical Exam: GENERAL: Patient is anxious appearing and in mild distress. RESPIRATORY: No dyspnea. Clear to auscultation and equal bilaterally. CARDIOVASCULAR: Regular rate and rhythm.No murmur appreciated. GASTROINTESTINAL: Abdomen soft, non-tender, no peritonitis. EXTREMITIES: Normal motion all extremities, no cyanosis, no edema. NEUROLOGIC: Alert and oriented. No focal neurologic deficits appreciated SKIN: No rash, no jaundice, no diaphoresis. PSYCH: Appropriate GCS: 15 ED Course: Times/Reassessments: Patient stable on repeat evaluation. She is agreeable to hospitalization and does not feel that she would be able to tolerate being discharged at this time. Seferino Warren MD Past Med/Surg History Problem List (Updated 11/29/24 @ 07:47 by Seferino Warren MD) Chest pain, exertional (Acute) Persistent cough (Acute) Exertional dyspnea (Acute) Hypertension (Acute) Effort angina Persistent cough (Acute) Elevated d-dimer (Acute) Heart palpitations (Acute) Tachycardia (Acute) Urinary symptom or sign Encounter for health maintenance examination Osteoporosis Prediabetes Gingivitis SOBOE (shortness of breath on exertion) Osteopenia Spondyloarthritis Macular degeneration Tension headache (Acute) Arthritis (Acute) Benign essential hypertension (Acute) GERD (gastroesophageal reflux disease) (Chronic) Medical History (Updated 11/29/24 @ 07:47 by Seferino Warren MD) Fatigue Related to 11/18/24 [facility] ER Visit Hx: UTI (urinary tract infection) 11/14 was on doxycycline for UTI for 7 days - went to [facility] ER 11/18/24 where provider extended doxycycline for another 10 days due to "patient fighting something" as per patient - medication will finish prior to 12/05/24 procedure Prediabetes no meds Osteoporosis Macular degeneration pt denies Persistent cough [facility] ER 11/18/24 - "nothing found on imaging" as per patient - has accompanied chest palpitations, tachycardia, exertional sob. Heart palpitations Recently started - went to [facility] ER 11/18/24 - PCP referred patient for stress test 11/29/24 for palpitations, chest pain, sob - Possibly follow up with cardiology after Gluten free diet Lactose intolerance Elevated d-dimer [facility] ER 11/18/24 - PCP referred patient for stress test 11/29/24 for palpitations, chest pain, sob - Possibly will follow up with cardiology after SOBOE (shortness of breath on exertion) "Has been going on for months" as per patient - went to [facility] ER 11/18/24 - PCP referred patient for stress test 11/29/24 for palpitations, chest pain, sob - Possibly will follow up with cardiology after Tachycardia Recently started went to [facility] ER 11/18/24 - PCP referred patient for stress test 11/29/24 for palpitations, chest pain, sob - Possibly will follow up with cardiology after Postmenopausal COVID-19 Left-sided face pain pt denies at this time Dizziness related to ongoing issues that patient presented with to [facility] ER 11/18/24 Acute electrocardiogram changes pt unsure - just went to [facility] ER 11/18/24 Precordial chest pain "I went to ER in 2019 and I think it was related to diet and gluten" as per patient - was just recently seen in [facility] ER 11/18/24 for chest pain, sob, tachycardia, elevated d-dimer. To have stress test 11/29/24 Viral pharyngitis pt denies any issues at this time Osteoarthritis GERD (gastroesophageal reflux disease) pt denies - related to gluten intolerance Anxiety Cardiac murmur Has not followed cardio in past - will have stress test 11/29/24 and possibly follow up with [facility] - last echo 2019 [facility] Subconjunctival hemorrhage of left eye Vertigo Ongoing - maintenance exercises Surgical History Nausea and vomiting after administration of anesthetic agent History of total abdominal hysterectomy and bilateral salpingo-oophorectomy History of cholecystectomy History of esophagogastroduodenoscopy (EGD) (2013) History of cataract surgery Bilateral History of detached retina repair Left History of colonoscopy (2019) Family History (Updated 11/27/24 @ 10:48 by Ricardo Marlow) Sister Colorectal cancer Post-operative nausea and vomiting Heart disease Father Esophageal cancer Mother Stomach cancer Pacemaker Grandmother (Maternal) Colorectal cancer Denies family history of Ovarian cancer Prostate cancer Myocardial infarction Breast cancer Social History Smoking Status: Never smoker Second Hand Exposure: No; Do You Dip or Chew Tobacco: No; Hx Alcohol Use: Yes Alcohol type: wine Hx Substance Use: No Preferred Language: Lithuanian Communication Ability: Effective Visual Impairment: No Limitations Hearing Ability: Normal Outbound Supervisor Required: No Beliefs That Will Affect Care: None marital status: Current Living Situation: Spouse current occupational status: retired Feels Safe at Home: Yes Dental Care, Regularly: No Physical Activity Frequency: 1-2 Times per Week Seatbelt Use: always Assistive Devices: None Allergies Allergies Allergy/AdvReac Type Severity Reaction Status Date / Time Penicillins Allergy Severe Rash Verified 11/27/24 11:32 Sulfa (Sulfonamide Allergy Intermediate Itchiness Verified 11/27/24 11:32 Antibiotics) gluten AdvReac Intermediate Gastrointestinal Verified 11/27/24 11:32 Upset lactose AdvReac Intermediate Gastrointestinal Verified 11/27/24 11:32 Upset Home Meds Home Medications Medication Instructions Recorded Confirmed cholecalciferol (vitamin D3) 125 5,000 unit PO QAM 05/31/19 11/27/24 mcg (5,000 unit) tablet albuterol sulfate 90 mcg/actuation 2 inh inhalation Q6H PRN Shortness 11/24/24 11/27/24 aerosol inhaler Of Breath hydrochlorothiazide 25 mg tablet 25 mg PO QAM 11/24/24 11/27/24 Bacillus coagulans 250 million 1,000 mmu cells PO DAILY 11/27/24 11/27/24 cell chewable tablet josh root extract 15 mg chewable 15 mg PO DAILY PRN Upset Stomach 11/27/24 11/27/24 tablet Previous Rx's Medication Instructions Recorded ibandronate 150 mg tablet 150 mg PO MONTHLY #3 tabs 12/29/23 Results & Data (ED) Vital Signs Vital Signs - 24 hr 11/27/24 07:54 11/27/24 08:20 11/27/24 08:20 Temperature 36.6 C Temperature Source Temporal Artery Scan Pulse Rate 96 H Pulse Rate [Apical] Pulse Rhythm [Apical] Pulse Strength [Apical] Respiratory Rate 20 Respiratory Effort / Characteristics Spontaneous Short of Breath Non-Labored Respiratory Depth Blood Pressure 170/81 H Blood Pressure [Right Arm] Blood Pressure Mean 110 Blood Pressure Mean [Right Arm] Pulse Oximetry 95 94 Oxygen Delivery Method Room Air Room Air Sepsis Recent Fever Within 48 Hours No Sepsis New/Unexplained Change in Mental Status N/A Sepsis Action Taken by Nursing No Action Required 11/27/24 08:22 11/27/24 08:24 Temperature Temperature Source Pulse Rate 89 Pulse Rate [Apical] 88 Pulse Rhythm [Apical] Regular Pulse Strength [Apical] Normal Respiratory Rate 19 Respiratory Effort / Characteristics Non-Labored Spontaneous Respiratory Depth Normal Blood Pressure Blood Pressure [Right Arm] 148/80 H Blood Pressure Mean Blood Pressure Mean [Right Arm] 102 Pulse Oximetry 94 Oxygen Delivery Method Room Air Sepsis Recent Fever Within 48 Hours Sepsis New/Unexplained Change in Mental Status Sepsis Action Taken by Nursing Laboratory Data 11/27/24 08:20 11/27/24 08:20 Lab Results 11/27/24 Range/Units 08:20 WBC 7.54 (4.8-10.8) K/ul RBC 5.10 (4.20-5.40) M/uL Hgb 15.1 (12.0-16.0) g/dl Hct 43.7 (37.0-47.0) % MCV 85.7 (80.0-100.0) fL MCH 29.6 (25.0-34.0) pg MCHC 34.6 (32.0-36.0) g/dL RDW Std Deviation 41.8 (36.4-46.3) fL RDW Coeff of Megha 13.2 (11.5-14.5) % Plt Count 323 (130-400) K/uL MPV 10.2 (9.4-12.4) fL Immature Gran % (Auto) 0.1 % Neut % (Auto) 65.2 % Lymph % (Auto) 22.5 % Montgomery % (Auto) 10.7 % Eos % (Auto) 1.1 % Baso % (Auto) 0.4 % Neut # (Auto) 4.91 (1.40-6.50) K/uL Lymph # (Auto) 1.70 (1.20-3.40) K/uL Montgomery # (Auto) 0.81 H (0.11-0.59) K/uL Eos # (Auto) 0.08 (0.00-0.50) K/uL Baso # (Auto) 0.03 (0.00-0.20) K/uL Immature Gran # (Auto) 0.01 (0.01-0.20) K/uL PT 10.7 (9.0-12.0) Seconds INR 1.0 (0.9-1.1) APTT 26 (21-31) Seconds PTT Ratio 1.0 Sodium 139 (136-145) mmol/L Potassium 3.6 (3.5-5.1) mmol/L Chloride 103 (98-107) mmol/L Carbon Dioxide 28 (21-32) mmol/L Anion Gap 8 (3-11) BUN 20 (6-23) mg/dl Creatinine 0.92 (0.6-1.2) mg/dl Est Cr Clr Drug Dosing 58.5 ml/min eGFR 66.57 BUN/Creatinine Ratio 21.7 H (10-20) Glucose 104 H (70-99(Fasting)) mg/dl Calcium 9.2 (8.6-10.3) mg/dl Magnesium 1.9 (1.7-2.4) mg/dl Total Bilirubin 0.8 (0.2-1.0) mg/dl Direct Bilirubin 0.1 (0-0.2) mg/dl AST 15 (13-39) U/L ALT 11 (7-52) U/L Alkaline Phosphatase 80 (34-104) U/L Troponin I High Sens < 2.3 (0-14) pg/ml Total Protein 7.5 (6.0-8.3) gm/dl Albumin 4.1 (3.4-5.0) gm/dl Lipase 17 (11-82) U/L TSH 4.731 H (0.300-4.500) uIu/ml Free T4 0.84 (0.61-1.60) ng/dl Administered Medications Discontinued Medications Hydrochlorothiazide (Hydrochlorothiazide 25 Mg Tab) 25 mg PO QAM [facility] Stop: 12/28/24 08:59 Last Admin: 11/28/24 08:19 Dose: 25 mg Documented By: CARMEN Vitamin D (Cholecalciferol 125 Mcg (5,000 Units) Tab) 125 mcg PO QAM [facility] Stop: 12/28/24 08:59 Last Admin: 11/28/24 08:19 Dose: 125 mcg Documented By: CARMEN Discharge Plan Visit Data Chief Complaint: Shortness of Breath/Dyspnea Stated Complaint: TACHYCARDIA ED Provider: Seferino Warren Discharge Problem: Exertional dyspnea, Persistent cough, Chest pain, exertional Patient Disposition: Admitted As Inpatient Discharge Instructions Interventions: ED Discharge Assessment Last Done: 11/27/24 12:43
--- NOTE | 2024-11-27 08:53 | XRay Report ---
XR chest 1V portable CLINICAL HISTORY: chest pain/shob dizziness COMPARISON STUDY: 11/18/2024 FINDINGS: Single view chest is unchanged demonstrating no acute cardiopulmonary process. Is no airspa ce opacity or pleural effusion. There is no pneumothorax. The heart and pulmonary vascularity are unr emarkable. There is a right diaphragmatic eventration and a probable linear scar at the left lung bas e. IMPRESSION: Stable exam; no acute process ACT 112: Negative or not required by law. Electronically signed by: Sigrid Max M.D. 11/27/2024 8:52 AM
[2024-11-27 09:01] LABS: Basophils # (auto) 0.03 K/uL (0.00-0.20); Basophils % (auto) 0.4 %; Eosinophils # (auto) 0.08 K/uL (0.00-0.50); Eosinophils % (auto) 1.1 %; Hematocrit (blood only) 43.7 % (37.0-47.0); Hemoglobin 15.1 g/dl (12.0-16.0); Immature Granulocytes # (auto) 0.01 K/uL (0.01-0.20); Immature Granulocytes % (auto) 0.1 %; Lymphocytes % (auto) 22.5 %; Mean Corpuscular Hemoglobin 29.6 pg (25.0-34.0); Mean Corpuscular Hgb Conc 34.6 g/dL (32.0-36.0); Mean Corpuscular Volume 85.7 fL (80.0-100.0); Mean Platelet Volume 10.2 fL (9.4-12.4); Monocytes # (auto) 0.81 K/uL (0.11-0.59); Monocytes % (auto) 10.7 %; Neutrophils # (auto) 4.91 K/uL (1.40-6.50); Neutrophils % (auto) 65.2 %; Platelet Count 323 K/uL (130-400); RDW Coefficient of Variation 13.2 % (11.5-14.5); RDW Standard Deviation 41.8 fL (36.4-46.3); White Blood Count 7.54 K/ul (4.8-10.8)
[2024-11-27 09:11] LABS: Alanine Aminotransferase 11 U/L (7-52); Albumin Level 4.1 gm/dl (3.4-5.0); Alkaline Phosphatase 80 U/L (34-104); Anion Gap 8 (3-11); Aspartate Aminotransferase 15 U/L (13-39); BUN Creatinine Ratio 21.7 (10-20); Bilirubin Direct 0.1 mg/dl (0-0.2); Bilirubin,Total 0.8 mg/dl (0.2-1.0); Blood Urea Nitrogen 20 mg/dl (6-23); Calcium 9.2 mg/dl (8.6-10.3); Carbon Dioxide 28 mmol/L (21-32); Chloride 103 mmol/L (98-107); Creatinine Clr Calc Pharmacy 58.5 ml/min; Glucose 104 mg/dl (70-99(Fasting)); Lipase 17 U/L (11-82); Magnesium 1.9 mg/dl (1.7-2.4); Potassium 3.6 mmol/L (3.5-5.1); Sodium 139 mmol/L (136-145); Total Protein 7.5 gm/dl (6.0-8.3)
[2024-11-27 09:16] LABS: Troponin I High Sensitivity < 2.3 pg/ml (0-14)
[2024-11-27 09:26] LABS: Thyroid Stimulating Hormone 4.731 uIu/ml (0.300-4.500)
[2024-11-27 09:41] LABS: Partial Thromboplastin Time 26 Seconds (21-31); Prothrombin Time 10.7 Seconds (9.0-12.0)
[2024-11-27 10:01] LABS: T4 Free Thyroxine 0.84 ng/dl (0.61-1.60)
[2024-11-27] MEDS ORDERED: POLYETHYLENE (MIRALAX) 17 GM PACK PO PRN (11:08)
[2024-11-27] MEDS ORDERED: ACETAMINOPHEN 325 MG TAB PO PRN (11:08)
--- NOTE | 2024-11-27 11:18 | History & Physical Report ---
Date of Service November 27, 2024 Assessment & Plan (1) Effort angina: (2) Heart palpitations: (3) Osteoporosis: (4) Prediabetes: Plan Keli is a 69-year-old female with a history of hypertension, prediabetes, osteoporosis, and OA presenting with worsening chest palpitations, shortness of breath, lightheadedness, dizziness, and tiredness since her ED visit on 11/18, with symptoms suggestive of possible cardiac ischemia or arrhythmia, although her chest CTA revealed only mild atherosclerotic disease. Considered for cardiac etiology such as angina due to gradual development of chest pain over months and worsening of symptoms with exertion. EKG changes showing T wave inversions. Trop was 2.3. Consider Ddx of GERD, anxiety, costochondritis if cardiac workup negative. #Angina with activity - Stress echo - Ordered send trop at 4hrs since trop - Continue BP medications to ensure optimal blood pressure control - Continue monitoring vitals #HTN - Continue home med HCTZ 25mg to ensure optimal blood pressure control Chronic conditions: - Osteoporosis- ibandronate 150mg, she takes monthly. next due 11/29/24 - Low Vit D- Holding D3 Diet: regular diet, gluten-free and dairy-free Dispo: Med tele Code status: Full History of Present Illness Chief Complaint: Shortness of breath, heart palpitations, lightheadedness Primary Care Provider: Bisi Gay MD Keli is a 69yo F, PMH of HTN, prediabetes, presenting with chest palpitations, shortness of breath, lightheadedness, dizziness, and tiredness. She notes that since being in the ED on 11/18, her symptoms have gotten worse. She is feeling dizzy, lightheaded, and has palpitations upon exertion more often. She says she's been unable to do activity for more than 5 minutes before she has to sit down. Chest pain does not radiate down her arm or to her jaw, but does travel to her left shoulder blade. Two episodes of nausea were noted through the week, but has not had any abdominal discomfort, or vomiting. Chest pain is midsternal discomfort and pressure, but not sharp or stabbing. She also has continued to have a dry nonproductive cough and worsening shortness of breath. She does not endorse any back pain, swelling of legs, or syncope. She has been taking her blood pressure medications regularly. She denies Headache, recent illness ED work up: CXR showed no changes. Chest CTA from last week showed mild atherosclerotic disease. Labs values: troponin <2.3, glucose 104 Allergies Allergy/AdvReac Type Severity Reaction Status Date / Time Penicillins Allergy Severe Rash Verified 11/27/24 11:32 Sulfa (Sulfonamide Allergy Intermediate Itchiness Verified 11/27/24 11:32 Antibiotics) gluten AdvReac Intermediate Gastrointestinal Verified 11/27/24 11:32 Upset lactose AdvReac Intermediate Gastrointestinal Verified 11/27/24 11:32 Upset Home Medications Medication Instructions Recorded Confirmed Type cholecalciferol (vitamin D3) 125 5,000 unit PO QAM 05/31/19 11/27/24 History mcg (5,000 unit) tablet ibandronate 150 mg tablet 150 mg PO MONTHLY #3 tabs 12/29/23 11/27/24 Rx doxycycline hyclate 100 mg tablet 100 mg PO BID 10 days #20 tabs 11/18/24 11/27/24 Rx albuterol sulfate 90 mcg/actuation 2 inh inhalation Q6H PRN Shortness 11/24/24 11/27/24 History aerosol inhaler Of Breath hydrochlorothiazide 25 mg tablet 25 mg PO QAM 11/24/24 11/27/24 History Bacillus coagulans 250 million 1,000 mmu cells PO DAILY 11/27/24 11/27/24 History cell chewable tablet josh root extract 15 mg chewable 15 mg PO DAILY PRN Upset Stomach 11/27/24 11/27/24 History tablet Past Med/Surg History Problem List (Updated 11/27/24 @ 11:40 by Luisa Martinez DO) Effort angina Persistent cough (Acute) Elevated d-dimer (Acute) Heart palpitations (Acute) Tachycardia (Acute) Urinary symptom or sign Encounter for health maintenance examination Osteoporosis Prediabetes Gingivitis SOBOE (shortness of breath on exertion) Osteopenia Spondyloarthritis Macular degeneration Tension headache (Acute) Arthritis (Acute) Benign essential hypertension (Acute) GERD (gastroesophageal reflux disease) (Chronic) Medical History (Updated 11/27/24 @ 11:40 by Luisa Martinez DO) Fatigue Related to 11/18/24 [facility] Visit Hx: UTI (urinary tract infection) 11/14 was on doxycycline for UTI for 7 days - went to [facility] 11/18/24 where provider extended doxycycline for another 10 days due to "patient fighting something" as per patient - medication will finish prior to 12/05/24 procedure Prediabetes no meds Osteoporosis Macular degeneration pt denies Persistent cough [facility] 11/18/24 - "nothing found on imaging" as per patient - has accompanied chest palpitations, tachycardia, exertional sob. Heart palpitations Recently started - went to [facility] 11/18/24 - PCP referred patient for stress test 11/29/24 for palpitations, chest pain, sob - Possibly follow up with cardiology after Gluten free diet Lactose intolerance Elevated d-dimer [facility] 11/18/24 - PCP referred patient for stress test 11/29/24 for palpitations, chest pain, sob - Possibly will follow up with cardiology after SOBOE (shortness of breath on exertion) "Has been going on for months" as per patient - went to [facility] 11/18/24 - PCP referred patient for stress test 11/29/24 for palpitations, chest pain, sob - Possibly will follow up with cardiology after Tachycardia Recently started went to [facility] 11/18/24 - PCP referred patient for stress test 11/29/24 for palpitations, chest pain, sob - Possibly will follow up with cardiology after Postmenopausal COVID-19 Left-sided face pain pt denies at this time Dizziness related to ongoing issues that patient presented with to [facility] 11/18/24 Acute electrocardiogram changes pt unsure - just went to [facility] 11/18/24 Precordial chest pain "I went to ER in 2019 and I think it was related to diet and gluten" as per patient - was just recently seen in [facility] 11/18/24 for chest pain, sob, tachycardia, elevated d-dimer. To have stress test 11/29/24 Viral pharyngitis pt denies any issues at this time Osteoarthritis GERD (gastroesophageal reflux disease) pt denies - related to gluten intolerance Anxiety Cardiac murmur Has not followed cardio in past - will have stress test 11/29/24 and possibly follow up with [facility] Cardiology - last echo 2019 [facility] Hypertension Subconjunctival hemorrhage of left eye Vertigo Ongoing - maintenance exercises Surgical History Nausea and vomiting after administration of anesthetic agent History of total abdominal hysterectomy and bilateral salpingo-oophorectomy History of cholecystectomy History of esophagogastroduodenoscopy (EGD) (2013) History of cataract surgery Bilateral History of detached retina repair Left History of colonoscopy (2019) Family History (Updated 11/27/24 @ 10:48 by Ricardo Marlow) Sister Colorectal cancer Post-operative nausea and vomiting Heart disease Father Esophageal cancer Mother Stomach cancer Pacemaker Grandmother (Maternal) Colorectal cancer Denies family history of Ovarian cancer Prostate cancer Myocardial infarction Breast cancer Social History Smoking Status: Never smoker Second Hand Exposure: No; Do You Dip or Chew Tobacco: No; Hx Alcohol Use: Yes Alcohol type: wine Hx Substance Use: No Preferred Language: Bengali Communication Ability: Effective Visual Impairment: No Limitations Hearing Ability: Normal [employer]visor [employer] Required: No Beliefs That Will Affect Care: None marital status: Current Living Situation: Spouse current occupational status: retired Feels Safe at Home: Yes Dental Care, Regularly: No Physical Activity Frequency: 1-2 Times per Week Seatbelt Use: always Assistive Devices: Glasses Review of Systems Review of Systems: as per HPI Physical Exam Constitutional: WD/WN, vitals as above Respiratory: normal respiratory effort, lungs clear to auscultation Cardiovascular: RRR, no murmur, no edema Vessels: radial pulses present Extremities: normal capillary refill Pain upon palpation of left upper sternum Gastrointestinal (Abdomen): normal bowel sounds, soft, nontender, no hepatosplenomegaly Neurologic: alert and oriented Psychiatric: Appropriate mood and affect Results & Data Results & Data Vital Signs (Past 12 Hours) Vital Signs Temp Pulse Pulse Resp BP BP Pulse Ox 11/27/24 08:24 89 11/27/24 08:22 88 19 148/80 H 94 11/27/24 08:20 94 11/27/24 07:54 36.6 C 96 H 20 170/81 H 95 O2 Del Method 11/27/24 08:24 11/27/24 08:22 Room Air 11/27/24 08:20 Room Air 11/27/24 07:54 Room Air Laboratory Results Laboratory Results - last 24 hr 11/27/24 08:20 WBC 7.54 RBC 5.10 Hgb 15.1 Hct 43.7 MCV 85.7 MCH 29.6 MCHC 34.6 RDW Std Deviation 41.8 RDW Coeff of Megha 13.2 Plt Count 323 MPV 10.2 Immature Gran % (Auto) 0.1 Neut % (Auto) 65.2 Lymph % (Auto) 22.5 [place] % (Auto) 10.7 Eos % (Auto) 1.1 Baso % (Auto) 0.4 Neut # (Auto) 4.91 Lymph # (Auto) 1.70 [place] # (Auto) 0.81 H Eos # (Auto) 0.08 Baso # (Auto) 0.03 Immature Gran # (Auto) 0.01 PT 10.7 INR 1.0 APTT 26 PTT Ratio 1.0 Sodium 139 Potassium 3.6 Chloride 103 Carbon Dioxide 28 Anion Gap 8 BUN 20 Creatinine 0.92 Est Cr Clr Drug Dosing 58.5 eGFR 66.57 BUN/Creatinine Ratio 21.7 H Glucose 104 H Calcium 9.2 Magnesium 1.9 Total Bilirubin 0.8 Direct Bilirubin 0.1 AST 15 ALT 11 Alkaline Phosphatase 80 Troponin I High Sens < 2.3 Total Protein 7.5 Albumin 4.1 Lipase 17 TSH 4.731 H Free T4 0.84 ECG Additional Comments: EKG, when compared to last week's, shows T wave inversion in lateral leads Code Status & VTE Plan Code Status Full code Supervising Physician Co-Signing Physician Notes I personally examined the patient and verified all kulkarni points of history and exam, discussed case, and agree with decision making with Dr Martinez and Santino Marlow MS2 Fatigue and dyspnea on exertion with a ceiling that is getting lower and lower. Notes this first manifest back in August, but now has gotten to the point where she can even really move laundry from the washer to the dryer without dyspnea and cannot prepare a meal without dyspnea. She was set to have a stress test later this week, her symptoms of gotten bad enough that she felt the need to come to the hospital. Vitals noted, in general she is awake and alert fatigued but no distress. HEENT normocephalic atraumatic mucous membranes moist. Breathing unlabored no accessory muscle use good effort. Skin without rashes pallor or icterus. Neuro without focal deficits. Troponin reassuringly low, EKG with nonspecific ST changes in V3 through V5but do appear to be more pronounced (again and then nonspecific/nondiagnostic/less than 1 mm deflection) compared to her EKG from last week fatigue/dyspnea on exertioncoronary disease is the diagnosis of exclusion. Does not appear to be having an CA, EKG is technically nondiagnosticconsidered cardiology evaluation with consideration for cath just based on the severity of her symptoms, but given that the differential would be fairly broad for this, and she is not showing overt signs of coronary ischemiawill move to evaluate further with a stress echo. If this is positive, then obviously enlisting cardiology for cath; if negative, then we will need to expand our differential to other possibilitiesknowing that she also had a negative chest CT just last week. Otherwise as above
--- NOTE | 2024-11-27 11:22 | Billing Data ---
Date of Service November 27, 2024 Coding Level of Care Code 16461 INT INP/OBS CARE
--- NOTE | 2024-11-27 18:23 | XCELERA ---
[id number]
[2024-11-28 05:29] LABS: Base Excess ABG 2.5 mEq/L (-9-1.8); HCO3 ABG 26 mmol/L (19-24); Oxygen Saturation ABG 99.5 % (90-95); PCO2 ABG 37 mmHg (35-46); PO2 ABG 92 mmHg (80-95); pH ABG 7.46 (7.35-7.45)
[2024-11-28 05:30] LABS: Allen Test Pos (Pos)
--- NOTE | 2024-11-28 06:04 | Electrocardiogram Report ---
Test Reason : Blood Pressure : */* mmHG Vent. Rate : 89 BPM Atrial Rate : 89 BPM P-R Int : 166 ms QRS Dur : 76 ms QT Int : 358 ms P-R-T Axes : 45 14 -13 degrees QTcB Int : 435 ms Sinus rhythm with Premature atrial complexes Low voltage QRS Nonspecific ST and T wave abnormality Abnormal ECG When compared with ECG of 18-Nov-2024 15:17, No significant change Confirmed by Nj Dunaway ([id number]) on 11/28/2024 6:04:11 AM Referred By: REFERRED SELF Confirmed By: Nj Dunaway
[2024-11-28] MEDS: hydroCHLOROthiazide 25 MG TAB PO SCH (08:19)
[2024-11-28] MEDS: CHOLECALCIFEROL 125 MCG (5,000 UNITS) TAB PO SCH (08:19)
--- NOTE | 2024-11-28 08:22 | Hospitalist Progress Note ---
Date of Service November 28, 2024 Assessment & Plan (1) Heart palpitations: Debbie Dickey is a 69-year-old female with a history of hypertension, prediabetes, osteoporosis, and OA presenting with worsening chest palpitations, shortness of breath, lightheadedness, dizziness, and tiredness since her ED visit on 11/18. CTA revealed only mild atherosclerotic disease. Stress echo was negative. Overnight pulse ox and morning ABG were not indicative of etiology such as ROSALIO. #Angina with activity - Encourage oral hydration - Patient education on diet and physical activity - PT/OT evaluation out patient Admission and Anticipated Discharge Date Admission Date: November 27, 2024 Dorina Dickey, 69yo F w/hypertension, prediabetes, osteoporosis, and OA, is feeling slightly better today. She mentions she got to walk around the unit yesterday and was less short of breath, but still experienced some chest palpitations. She mentions still having a dry cough. She endorses that she usually does not hydrate well, but has been trying to do a better job over these past two weeks due to a UTI. She mentions that she drinks 3 x 12oz gatorades mixed with water per day. She does not endorse worsening of symptoms after eating or at a particular time of the day, only after exertional activities. She has not experienced any lightheadedness, dizziness, or nausea today when she's been up and moving around. No chest pain or radiation. Review of Systems Review of Systems: as per HPI Physical Exam Constitutional: WD/WN, vitals as above Respiratory: normal respiratory effort, lungs clear to auscultation Cardiovascular: RRR, no murmur, no edema Vessels: radial pulses present Extremities: normal capillary refill Pain upon palpation of left upper sternum Gastrointestinal (Abdomen): normal bowel sounds, soft, nontender, no hepatosplenomegaly Results & Data Results & Data Vital Signs (Past 12 Hours) Vital Signs Temp Pulse Pulse Pulse Resp BP Pulse Ox 11/28/24 07:50 36.7 C 73 17 125/77 93 11/28/24 07:09 68 11/28/24 03:26 36.6 C 68 18 131/80 96 11/27/24 23:02 36.6 C 74 18 107/71 94 11/27/24 22:11 63 11/27/24 22:00 79 Pulse Ox O2 Del Method O2 Del Method 11/28/24 07:50 Room Air 11/28/24 07:09 11/28/24 03:26 Room Air 11/27/24 23:02 Room Air 11/27/24 22:11 11/27/24 22:00 95 Room Air
--- NOTE | 2024-11-28 15:02 | Discharge Summary ---
Date of Service November 28, 2024 Admission HPI Per Admitting Provider Keli is a 69yo F, PMH of HTN, prediabetes, presenting with chest palpitations, shortness of breath, lightheadedness, dizziness, and tiredness. She notes that since being in the ED on 11/18, her symptoms have gotten worse. She is feeling dizzy, lightheaded, and has palpitations upon exertion more often. She says she's been unable to do activity for more than 5 minutes before she has to sit down. Chest pain does not radiate down her arm or to her jaw, but does travel to her left shoulder blade. Two episodes of nausea were noted through the week, but has not had any abdominal discomfort, or vomiting. Chest pain is midsternal discomfort and pressure, but not sharp or stabbing. She also has continued to have a dry nonproductive cough and worsening shortness of breath. She denies headache or any recent illness/sick contacts. She does not endorse any back pain, swelling of legs, or syncope. She has been taking her blood pressure medications regularly. ED work up: CXR showed no changes. Chest CTA from last week showed mild atherosclerotic disease. Labs values: troponin 1st: <2.3 2nd: 6.5, glucose 104 Medical History: [Reviewed] Medications: [Reviewed] Surgical History: [Reviewed] Family history: [Reviewed] Allergies: [Reviewed] Social History: [Reviewed] Admission Exam (Per Admitting) Constitutional WD/WN, vitals as above Eyes PERRL, conjunctivae normal, anicteric sclerae Respiratory normal respiratory effort, lungs clear to auscultation Cardiovascular RRR, no murmur, no edema Extremities: normal capillary refill Pain upon palpation of left upper sternum Gastrointestinal (Abdomen) normal bowel sounds, soft, nontender, no hepatosplenomegaly Skin no rashes, warm and dry Neurologic alert and oriented Psychiatric Appropriate mood and affect Discharge Data Consultations 11/27/24 09:47 ED Decision to Admit Stat Hospital Course (1) Effort angina: (2) Heart palpitations: (3) SOBOE (shortness of breath on exertion): (4) Hypertension: (5) Osteoporosis: Debbie Dickey is a 69-year-old female with a history of hypertension, prediabetes, osteoporosis, and OA presenting with worsening chest palpitations, shortness of breath, lightheadedness, dizziness, and tiredness since her ED visit on 11/18, with symptoms suggestive of possible cardiac ischemia or arrhythmia, although her chest CTA revealed only mild atherosclerotic disease last week. #Angina with activity - Considered for cardiac etiology due to gradual development of chest pain over months and worsening of symptoms with exertion. EKG from ED had nonspecific ST changes in V3 through V5. Troponin, stress echo, overnight pulse ox, ABGs, and PFTs were all negative. - Suspect that the more likely cause is decompensation, age-related decrease in mobility, and decreased fluid intake. Patient endorses decreased physical activity at baseline and low fluid intake (3 x 12 oz of gatorade mixed with water daily) - Discussed that increasing fluid intake, working on physical activity, and diet would be best management currently. - Orders for outpatient PT if desired by patient #HTN - Continue home med HCTZ 25mg to ensure optimal blood pressure control Chronic conditions: - Osteoporosis- continue with ibandronate 150mg, she takes monthly. next due 11/29/24 - Low Vit D - continue with 5000 unit D3 Supervising Physician Co-Signing Physician Notes I personally examined the patient and verified all kulkarni points of history and exam, discussed case, and agree with decision making with Dr Martinez and Santino Marlow MS2 feels up to going home. present. discussed testing/results/working dx/plans. vitals noted nad heent nc at mmm breathing unlabored no accessory muscles good effort skin no rashes no pallor or icterus neuro no focal deficits. last weeks CT chest, current stress echo, PFTs, overnight pulse ox, ABG, labs noted VILLASENOR/fatigue - essentially all significant cardiopulmonary pathology has been ruled out. does note inadequate hydration, exercise, eating habits - discussed how this could all contribute. extensive discusisons on lifestyle change w practical measures to help her get there. safe/stable for home, outpt PCP f/u
[2024-11-28 15:47] VITALS: BP 129/79; RESP 16; TEMP 97.9; O2SAT 94
[2024-11-28 17:04] VITALS: PULSE 76
--- NOTE | 2024-11-28 18:29 | Billing Data ---
Date of Service November 28, 2024 Coding Level of Care Code 13626 IN/OBS DISCH 30 MIN/LESS
== END 2024-11-28 18:22 | disposition home or self-care (01) ==
LOC: ED 07:51 → EDINP 07:51 → 2N 12:43